=== PATIENT | female | born 1940 | race Caucasian/White ===

== ENCOUNTER 2020-06-13 16:13 | Emergency (ER) | payer MEDICARE ==
[~2020-06-13] VITALS: Ht 157.5 cm; Wt 90.9 kg
--- NOTE | 2020-06-13 16:32 | PHYS DOC ---
Past History Past Medical History: Arthritis, Fibromyalgia, Hypertension Past Surgical History: Appendectomy, Cholecystectomy, Hysterectomy, Other Smoking: Non-smoker Alcohol Use: None Drug Use: None Adult General Chief Complaint Chief Complaint: COUGH HPI HPI Patient is a 72-year-old female presents emergency department complaining of feeling "sick "since Tuesday June 09, 2020. Patient states that yesterday evening she started having diarrhea spells and has had greater than 10 bouts of diarrhea since beginning these. Patient reports generalized diffuse abdominal pain not specific to any certain area. Patient complains of nausea, however reports vomiting only one time this morning at approximately 6 AM. Patient states that there was just food particles and water in her vomitus. Patient reports that her diarrhea is loose watery and brown without blood. Patient denies chest pains, denies chest palpitations, states that she has intermittent shortness of breath when she gets her waves of nausea otherwise does not have any shortness of breath. Patient denies any fever or chills at home. Patient denies any back pain, visual changes, loss of smell or loss of taste. Patient denies sore throat, denies increased thirst or increased urination. Patient denies any other physical complaints or illnesses. Patient reports having a history of hypertension, neuropathy, depression. Patient reports having her gallbladder removed and her appendix removed in 1969. Review of Systems Review of Systems 14 body systems of review of systems have been reviewed. See HPI for pertinent positives and negative responses, otherwise all other systems are negative, nonpertinent or noncontributory. Allergies Allergies Allergies Coded Allergies Type Severity Reaction Last Updated Verified Oxycodone Terephthalate Allergy Unknown 06/13/20 Yes acetaminophen Allergy Unknown 06/13/20 Yes aspirin Allergy Unknown 06/13/20 Yes celecoxib Allergy Unknown 06/13/20 Yes codeine Allergy Unknown 06/13/20 Yes diphenhydramine HCl Allergy Unknown 06/13/20 Yes oxycodone HCl Allergy Unknown 06/13/20 Yes Physical Exam Physical Exam Constitutional: Well developed, well nourished, no acute distress, non-toxic appearance. Patient was initially tachypneic during beginning part of physical exam however patient stopped breathing quickly when asked to. HENT: Normocephalic, atraumatic, bilateral external ears normal, oropharynx moist, no oral exudates, nose normal. Eyes: PERRLA, EOMI, conjunctiva normal, no discharge. Neck: Normal range of motion, no tenderness, supple, no stridor. Cardiovascular:Heart rate regular rhythm, no murmur Lungs & Thorax: Bilateral breath sounds clear to auscultation all lung santiago. Patient is in no respiratory distress. Abdomen: Bowel sounds normal, soft, no masses, no pulsatile masses. Generalized diffuse tenderness to palpation throughout all 4 quadrants, patient has old well -healed abdominal scar for which patient states that she had her appendix and gallbladder removed in 1969. Skin: Warm, dry, no erythema, no rash. Skin moderately moist during initial exam, patient states that she was sweating during her vomiting spell and diarrhea spells however states that she does not sweat when she is not vomiting or having diarrhea. Patient does deny any acute diaphoretic episodes associated with chest pain or shortness of breath. Back: No tenderness, no CVA tenderness. Extremities: No tenderness, no cyanosis, no clubbing, ROM intact, no edema. Neurologic: Alert and oriented X 3, normal motor function, normal sensory function, no focal deficits noted. Psychologic: Affect normal, judgement normal, mood normal. Patient was initially anxious during the initial physical exam, however patient calmed down to a normal affect and normal mood when I indicated she would have another Covid test and we will give her something for nausea. Patient does deny homicidal or suicidal ideations. EKG EKG EKG performed at 1701 per house respiratory therapy staff, shows sinus tachycardia without other ectopy and heart rate of 110 bpm, BP are interval 0.192, QTc interval 0.447, no acute STEMI, no ACS, no acute ischemia noted, EKG interpreted by ED attending physician Dr. Chatman. Radiology/Procedures Radiology/Procedures PATIENT: OPAL CALL ACCOUNT: [id number] : 1940 LOCATION: ER AGE: 80 SEX: F EXAM STATUS: REG ER ORD. PHYSICIAN: ROXANN HANNA APRN REASON: ABDOMINAL PAIN, DIARRHEA, LEUKOCYTOSIS PROCEDURE: CT ABD PELV W/ IV CONTRST ONLY Exam performed: One view chest. Indication: Reason: ABDOMINAL PAIN, DIARRHEA, LEUKOCYTOSIS / Spl. Instructions: OMNI 300 75ML IV ONLY / History: Date of Service: 06/13/2020 5:41 PM Comparison: Two-view chest from 03/20/2013. Single AP upright portable view chest findings: Cardiomediastinal silhouette is within limits of normal. No acute infiltrates, effusion or pneumothorax is detected. The bony structures are normal. Impression: No acute cardiopulmonary process is detected. End impression PQRS Compliance Statement: One or more of the following individualized dose reduction techniques were utilized for this examination: 1. Automated exposure control 2. Adjustment of the mA and/or kV according to patient size 3. Use of iterative reconstruction technique Exam performed: CT abdomen and pelvis with contrast HISTORY: Abdominal pain, diarrhea, leukocytosis. DATE OF SERVICE: 06/13/2020. COMPARISON: None available TECHNIQUE: Contiguous helical acquisitions are obtained through the abdomen and pelvis during intravenous administration of 75 cc of Omnipaque 300. Sagittal and coronal reformatted images are obtained and reviewed. FINDINGS: Lung bases are clear. The visualized heart is normal. Mild hepatic steatosis. Recanalized umbilical vein patient is at opacity seen in portal hypertension. Cholecystectomy. Mild splenomegaly. Pancreas is normal. Both adrenal glands and bilateral kidneys are normal in size with symmetric excretion of contrast via both kidneys. There is no hydronephrosis or nephrolithiasis. Aorta is normal in caliber without aneurysm. There is mild dilation of several small bowel loops in the central abdomen with thickened enhancing mucosa. Multiple mildly enlarged mesenteric lymph nodes are seen scattered throughout. Diffuse sigmoid diverticulosis. The urinary bladder is decompressed. Hysterectomy. No adnexal masses seen. There is mild free fluid in the pelvis. IMPRESSION: Diffuse wall thickening and mucosal hyperenhancement of several loops of small bowel in the central abdomen perhaps representing enteritis. Multiple mildly enlarged mesenteric lymph nodes likely reactive. Sigmoid diverticulosis without acute diverticulitis. Electronically signed by: Ольга Tyler MD (06/13/2020 6:15 PM) [facility] Heart Score Risk Factors: Risk Factors: DM, Current or recent (<one month) smoker, HTN, HLP, family his tory of CAD, obesity. Risk Scores: Risk Factors: DM, Current or recent (<one month) smoker, HTN, HLP, family history of CAD, obesity. Course & Med Decision Making Course & Med Decision Making Pertinent Labs and Imaging studies reviewed. (See chart for details) 80-year-old female presents emergency department complaining that she feels "sick and ill "patient reports having the Covid virus 3 months ago. Patient states that she feels like she has contacted the Covid virus again because she is having similar symptoms. Patient complained of diarrhea with intermittent nausea and vomiting however patient has not exhibited any diarrhea nor any vomiting during her ER stay. And ER work-up was initiated, pending lab results and imaging results. Patient's labs concerning for infectious process, white count 29,600, mild neutrophilia of 80, a CT abdomen pelvis was ordered to rule out abdominal infectious process. Patient's lactic acid result 2.8, initiated 30 mL/kg fluid resuscitation. Patient showed a slight hyperbilirubinemia of 1.3, however patient's amylase was 28 and liver enzymes were also within normal limits. Patient most likely in a dehydrated state as hemoglobin 17.7 hematocrit 52.5. Patient's initial CO2 was decreased at 17. Labs were drawn upon patient's triage process as patient was hyperventilating during the time. Patient has since ventilated within normal limits at a rate of 14-16. An ABG was drawn after a period of time of patient breathing normal rate, patient's CO2 within normal limits at 22. Lactic decreased to 1.78. Discussed case with inpatient admitting Dr. Bryan who recommended patient be trialed home with Lomotil and Levaquin 500 mg daily for 5 days with a diagnosis of self-limiting viral gastroenteritis and diarrhea. Discussed recommendations of Dr. Bryan to patient who was amenable to going home, patient was given first dose of Lomotil in the emergency department, fluid resuscitation was completed prior to discharge, patient reexamination noted patient stated she felt better, patient's appearance was nontoxic. Patient gave verbal understanding of discharge home instructions, antibiotic and prescription use, return to ER concerns, will call her primary care Dr. Kamlesh Velasquez tomorrow, patient states that she has an appointment via telemedicine/computer with Dr. Simon tomorrow at noon. Patient had no further questions or concerns, patient discharged home without incident. Dragon Disclaimer Dragon Disclaimer This electronic medical record was generated, in whole or in part, using a voice recognition dictation system. Departure Departure: Impression: Primary Impression: Viral gastroenteritis Additional Impression: Diarrhea Disposition: 01 DC HOME SELF CARE/HOMELESS Condition: IMPROVED Referrals: KAMLESH العلي MD (PCP) Patient Instructions: Diarrhea, Viral Gastroenteritis Additional Instructions: Please take prescriptions as directed, follow-up with Dr. Freitas tomorrow please call for an appointment tomorrow. Return to the emergency department for worsening symptoms or other concerns. Please keep well-hydrated drinking plenty of water while you are having diarrhea spells. Use the Lomotil prescription to help suppress your diarrhea. EMERGENCY DEPARTMENT GENERAL DISCHARGE INSTRUCTIONS Thank you for coming to [facility] (ED) today and trusting us with you care. We trust that you had a positivie experience in our Emergency Department. If you wish to speak to the department management, you may call the director at [phone]. YOUR FOLLOW UP INSTRUCTIONS ARE FOLLOWS: 1. Do you have a private Doctor? If you do not have a private doctor, please ask for a resource list of physicians or clinics that may be able to assist you with follow up care. 2. The Emergency Physician has interpreted your x-rays. The X-Ray specialist will also review them. If there is a change in the findings, you will be notified in 48 hours when at all possible. 3. A lab test or culture has been done, your results will be reviewed and you will be notified if you need a change in treatment. ADDITIONAL INSTRUCTIONS AND INFORMATION: 1. Your care today has been supervised by a physician who is specially trained in emergency care. Many problems require more than one evaluation for a complete diagnosis and treatment. We recommend that you schedule your follow up appointment as recommended to ensure complete treatment of you illness or injury. If you are unable to obtain follow up care and continue to have a problem, or if your condition worsens, we recommend that you return to the ED. 2. We are not able to safely determine your condition over the phone nor are we able to give sound medical advice over the phone. For these safety reasons, if you call for medical advice we will ask you to come to the ED for further evaluation. 3. If you have any questions regarding these discharge instructions please call the ED at [phone]. SAFETY INFORMATION: In the interest of safety, wellness, and injury prevention; we encourage you to wear your sealbelt, if you smoke; quite smoking, and we encourage family to use a protective helmet for bicycling and other sporting events that present an increased risk for head injury. IF YOUR SYMPTOMS WORSEN OR NEW SYMPTOMS DEVELOP, OR YOU HAVE CONCERNS ABOUT YOUR CONDITION; OR IF YOUR CONDITION WORSENS WHILE YOU ARE WAITING FOR YOUR FOLLOW UP APPOINTMENT; EITHER CONTACT YOUR PRIMARY CARE DOCTOR, THE PHYSICIAN WHOSE NAME AND NUMBER YOU WERE GIVEN, OR RETURN TO THE ED IMMEDIATELY. Scripts Levofloxacin (LEVOFLOXACIN) 500 Mg Tablet 500 MG PO ONCE for DIARRHEA for 5 Days, #5 TAB 0 Refills Prov: ROXANN HANNA APRN 06/13/20 Diphenoxylate Hcl/Atropine (LOMOTIL TABLET) 1 Each Tablet 1 EACH PO PRN PRN for DIARRHEA MDD 8 TABLETS IN 24 HOUR PERIOD, #16 TAB 0 Refills Start with 2 tabs p.o. 4 times a day as needed for diarrhea, take 2 tabs after each diarrhea spell up to a maximum of 8 tablets. Do not take any tablets if you are not having diarrhea. Prov: ROXANN HANNA APRN 06/13/20 Problem Qualifiers Additional Impression: Diarrhea Diarrhea type: infectious Qualified Codes: A09 - Infectious g astroenteritis and colitis, unspecified ROXANN HANNA APRN Jun 13, 2020 16:32
[2020-06-13] MEDS ORDERED: ONDANSETRON PF 4 MG/2 ML VIAL. IVP ONE (16:45)
[2020-06-13] MEDS ORDERED: IV NORMAL SALINE 1,000ML 1,000 ML IV ONE ×2 (16:45→20:15)
[2020-06-13 16:58] LABS: BASO # 0.1 x10^3/uL (0.0-0.2); BASO % 0 % (0-3); EOS # 2.8 x10^3/uL (0.0-0.7); EOS % 10 % (0-3); HEMATOCRIT 52.5 % (36.0-47.0); HEMOGLOBIN 17.7 g/dL (12.0-15.5); LYMPH # 1.8 x10^3/uL (1.0-4.8); LYMPH % 6 % (24-48); MEAN CORPUSCULAR HEMOGLOBIN 30 pg (25-35); MEAN CORPUSCULAR HGB CONC 34 g/dL (31-37); MEAN CORPUSCULAR VOLUME 88 fL (79-100); MONO # 1.3 x10^3/uL (0.0-1.1); MONO % 5 % (0-9); NEUT # 23.6 x10^3uL (1.8-7.7); NEUT % 80 % (31-73); PLATELET COUNT 310 x10^3/uL (140-400); RED BLOOD COUNT 5.96 x10^6/uL (3.50-5.40); RED CELL DISTRIBUTION WIDTH 13.6 % (11.5-14.5); WHITE BLOOD COUNT 29.6 x10^3/uL (4.0-11.0)
[2020-06-13 17:14] LABS: ANION GAP 17 (6-14); BLOOD UREA NITROGEN 16 mg/dL (7-20); BUN/CREATININE RATIO 23 (6-20); CALCIUM 8.4 mg/dL (8.5-10.1); CARBON DIOXIDE 17 mmol/L (21-32); CHLORIDE 109 mmol/L (98-107); CREATININE 0.7 mg/dL (0.6-1.0); GFR 80.9; GLUCOSE 120 mg/dL (70-99); POTASSIUM 4.3 mmol/L (3.5-5.1); SODIUM 143 mmol/L (136-145)
[2020-06-13 17:31] LABS: ALBUMIN 2.9 g/dL (3.4-5.0); ALBUMIN/GLOBULIN RATIO 1.1 (1.0-1.7); ALK PHOS 90 U/L (46-116); ALT (SGPT) 18 U/L (14-59); AMYLASE 28 U/L (25-115); AST (SGOT) 19 U/L (15-37); TOTAL BILIRUBIN 1.3 mg/dL (0.2-1.0); TOTAL PROTEIN 5.5 g/dL (6.4-8.2)
[2020-06-13] MEDS ORDERED: CONTRAST GIVEN. MC PRN (17:45)
[2020-06-13] MEDS ORDERED: IOHEXOL 300 MG/ML 75 ML VIAL. IV ONE (18:00)
[2020-06-13] MEDS ORDERED: CIPROFLOXACIN 400MG PREMIX 200 ML IV ONE (18:00)
[2020-06-13 18:15] LABS: INFLUENZA A PATIENT NEGATIVE (NEGATIVE); INFLUENZA B PATIENT NEGATIVE (NEGATIVE)
--- NOTE | 2020-06-13 18:17 | RAD ---
Exam performed: One view chest. Indication: Reason: ABDOMINAL PAIN, DIARRHEA, LEUKOCYTOSIS / Spl. Instructions: OMNI 300 75ML IV ONLY / History: Date of Service: 06/13/2020 5:41 PM Comparison: Two-view chest from 03/20/2013. Single AP upright portable view chest findings: Cardiomediastinal silhouette is within limits of normal. No acute infiltrates, effusion or pneumotho rax is detected. The bony structures are normal. Impression: No acute cardiopulmonary process is detected. End impression PQRS Compliance Statement: One or more of the following individualized dose reduction techniques were utilized for this examinat ion: 1. Automated exposure control 2. Adjustment of the mA and/or kV according to patient size 3. Use of iterative reconstruction technique Exam performed: CT abdomen and pelvis with contrast HISTORY: Abdominal pain, diarrhea, leukocytosis. DATE OF SERVICE: 06/13/2020. COMPARISON: None available TECHNIQUE: Contiguous helical acquisitions are obtained through the abdomen and pelvis during intrave nous administration of 75 cc of Omnipaque 300. Sagittal and coronal reformatted images are obtained a nd reviewed. FINDINGS: Lung bases are clear. The visualized heart is normal. Mild hepatic steatosis. Recanalized umbilical vein patient is at opacity seen in portal hypertension. Cholecystectomy. Mild splenomegaly. Pancreas is normal. Both adrenal glands and bilateral kidneys ar e normal in size with symmetric excretion of contrast via both kidneys. There is no hydronephrosis or nephrolithiasis. Aorta is normal in caliber without aneurysm. There is mild dilation of several smal l bowel loops in the central abdomen with thickened enhancing mucosa. Multiple mildly enlarged mesent jay lymph nodes are seen scattered throughout. Diffuse sigmoid diverticulosis. The urinary bladder is decompressed. Hysterectomy. No adnexal masses seen. There is mild free fluid i n the pelvis. IMPRESSION: Diffuse wall thickening and mucosal hyperenhancement of several loops of small bowel in the central a bdomen perhaps representing enteritis. Multiple mildly enlarged mesenteric lymph nodes likely reactiv e. Sigmoid diverticulosis without acute diverticulitis. Electronically signed by: Ольга Tyler MD (06/13/2020 6:15 PM) [facility]
[2020-06-13] MEDS ORDERED: IV NORMAL SALINE 1,000ML 2,000 ML IV STA (19:03)
[2020-06-13 20:10] LABS: BGAS PH 7.38 (7.35-7.45)
[2020-06-13] MEDS ORDERED: DIPHENOXYLATE/ATROPINE TABLET. PO ONE (21:00)
[2020-06-13 21:08] LABS: BILIRUBIN,URINE NEG (NEG); CLARITY,URINE CLEAR; COLOR,URINE YELLOW; GLUCOSE,URINE NEG (NEG)
[2020-06-13 21:09] LABS: BACTERIA,URINE 0 /HPF (0-FEW); NITRITE,URINE NEG (NEG); RBC,URINE 0 /HPF (0-2); UROBILINOGEN,URINE 0.2 mg/dL (0.2 mg/dL); WBC,URINE 0 /HPF (0-4)
[2020-06-13] MEDS ORDERED: LEVO500T8 PO (21:27)
[2020-06-13] MEDS ORDERED: DIPH1TAB PO (21:27)
[2020-06-13 21:39] VITALS: BP 114/66
[2020-06-13 21:51] LABS: % EOS 16 % (0-5); % LYMPHS 4 % (24-48); % MONOS 6 % (0-10); % SEGS 74 % (35-66); PLT ESTIMATE ADEQUATE (ADEQUATE)
--- NOTE | 2020-06-14 07:44 | EKG ---
[address] [address] Test Date: 2020-06-13 Test Time: 17:01:16 Pat Name: OPAL CALL Department: Room: Gender: F Gyroscope Repairer: DANYELLE : 1940 Requested By: ROXANN HANNA Order Number: [id number] Reading MD: Measurements Intervals [place] Rate: 110 P: 1 MI: 192 QRS: 16 QRSD: 78 T: 62 QT: 326 QTc: 447 Interpretive Statements SINUS TACHYCARDIA OTHERWISE NORMAL ECG RI6.02 No previous ECG available for comparison
[2020-06-17] MEDS ORDERED: LISI-334 PO (22:47)
[2020-06-18] MEDS ORDERED: MAGNESIUM SULFATE 2GM 50 ML IV ONE (16:00)
[2020-06-18] MEDS ORDERED: POTASSIUM CL 20MEQ IN D5W 1,000 ML IV SCH (16:00)
[2020-06-18] MEDS ORDERED: ACETAMINOPHEN 325 MG TABLET PO PRN (16:15)
[2020-06-18] MEDS ORDERED: DIPHENOXYLATE/ATROPINE TABLET. PO PRN (16:15)
[2020-06-18] MEDS ORDERED: NON FORMULARY ITEM (Melatonin 10 MG) PO PRN (16:15)
[2020-06-18] MEDS ORDERED: DICLOFENAC SODIUM 1% TOPICAL GEL 100GM TUBE. TP SCH (21:00)
[2020-06-18] MEDS ORDERED: GABAPENTIN 300 MG CAPSULE. PO SCH (21:00)
[2020-06-18] MEDS ORDERED: DULoxetine HCL 20 MG CAPSULE.DR PO SCH (21:00)
[2020-06-19] MEDS ORDERED: VITAMIN E MIXED 400 UNIT PO SCH (09:00)
[2020-06-19] MEDS ORDERED: NON FORMULARY ITEM (Esomeprazole Magnesium (Nexium Capsule) 40 MG) PO SCH (09:00)
[2020-06-19] MEDS ORDERED: ASCORBIC ACID 1000 MG PO SCH (09:00)
[2020-06-19] MEDS ORDERED: DHA PO SCH (09:00)
[2020-06-19] MEDS ORDERED: VITAMIN D3 PO SCH (09:00)
[2020-06-19] MEDS ORDERED: FISH OIL PO SCH (09:00)
[2020-06-19] MEDS ORDERED: OMEGA PO SCH (09:00)
[2020-06-19] MEDS ORDERED: EPA PO SCH (09:00)
[2020-06-19] MEDS ORDERED: NON FORMULARY ITEM (Biotin 10,000 MCG) PO SCH (09:00)
[2020-06-19] MEDS ORDERED: CALCIUM CARBONATE PO SCH (09:00)
[2020-06-19] MEDS ORDERED: CHOLECALCIFEROL 125 MCG PO SCH (09:00)
== END 2020-06-13 21:38 | disposition home or self-care (01) ==
LOC: ER 16:13
DX: A08.4 Viral intestinal infection, unspecified (principal); R19.7 Diarrhea, unspecified; M19.90 Unspecified osteoarthritis, unspecified site; M79.7 Fibromyalgia; I10 Essential (primary) hypertension; Z20.828 Contact with and (suspected) exposure to other viral communicable diseases; Z90.49 Acquired absence of other specified parts of digestive tract; Z90.89 Acquired absence of other organs; Z90.710 Acquired absence of both cervix and uterus; Z88.5 Allergy status to narcotic agent; Z88.6 Allergy status to analgesic agent; Z88.8 Allergy status to other drugs, medicaments and biological substances
CPT/HCPCS: 36415; 36600; 71045; 74177; 80053; 81001; 82150; 82553; 82803; 83605; 83880; 84484; 85007; 85025; 87804; 93005; 96361; 96365; 96368; 96375; 99285; C9803; J0744; J2405; J3490; J7030; Q9967; U0003

== ENCOUNTER 2020-06-17 14:51 | Inpatient (IN) | payer MEDICARE ==
[~2020-06-17] VITALS: Ht 157.5 cm; Wt 95.9 kg
[~2020-06-17 14:51] MED LIST: DIPH1TAB PO; LEVO500T8 PO
[2020-06-17] MEDS ORDERED: IV NORMAL SALINE 1,000ML 1,000 ML IV SCH (16:00)
[2020-06-17] MEDS ORDERED: DICYCLOMINE 20 MG/2 ML VIAL. IM ONE (16:15)
--- NOTE | 2020-06-17 16:42 | PHYS DOC ---
Past History Past Medical History: Arthritis, Fibromyalgia, GERD, Hypertension (SIL BOWEN APRN) Past Surgical History: Appendectomy, Cholecystectomy, Hysterectomy, Other (SIL BOWEN APRN) Smoking: Non-smoker Alcohol Use: None Drug Use: None (SIL BOWEN APRN) General Adult EDM: Chief Complaint: NAUSEA/VOMITING/DIARRHEA HPI: HPI: Patient is a 80-year-old female who presents with left lower abdominal pain, diarrhea. Patient was seen here on 06/09 for for similar symptoms. Patient was sent home with levofloxacin, and Lamictal. Patient returned to the ER today stating that she has continued to have watery diarrhea and weakness. Patient states that she is unable to eat or drink anything because it runs right through her. Patient denies recent illness, recent antibiotics. Patient denies fever. (SIL BOWEN APRN) Review of Systems: Review of Systems: Constitutional: Denies fever or chills Eyes: Denies change in visual acuity HENT: Denies nasal congestion or sore throat Respiratory: Denies cough or shortness of breath Cardiovascular: Denies chest pain or edema GI: Left lower abdominal pain, reports diarrhea . Denies nausea, vomiting, bloody stools : Denies dysuria Musculoskeletal: Denies back pain or joint pain Integument: Denies rash Neurologic: Denies headache, focal weakness or sensory changes Endocrine: Denies polyuria or polydipsia Lymphatic: Denies swollen glands Psychiatric: Denies depression or anxiety (SIL BOWEN APRN) Current Medications: Current Meds: Current Medications Medications (Trade) Dose Ordered Sig/Yumiko Start Time Stop Time Status Last Admin Dose Admin Dicyclomine HCl (Bentyl) 20 mg 1X ONCE 06/17/20 16:15 06/17/20 16:19 DC Sodium Chloride 1,000 ml @ 1,000 mls/hr Q1H 06/17/20 16:00 06/17/20 16:59 (SIL BOWEN APRN) Allergies: Allergies: Allergies Coded Allergies Type Severity Reaction Last Updated Verified Oxycodone Terephthalate Allergy Unknown 06/13/20 Yes acetaminophen Allergy Unknown 06/13/20 Yes aspirin Allergy Unknown 06/13/20 Yes celecoxib Allergy Unknown 06/13/20 Yes codeine Allergy Unknown 06/13/20 Yes diphenhydramine HCl Allergy Unknown 06/13/20 Yes oxycodone HCl Allergy Unknown 06/13/20 Yes (SIL BOWEN APRN) Physical Exam: PE: Constitutional: Well developed, well nourished, no acute distress, non-toxic appearance. [] HENT: Normocephalic, atraumatic, bilateral external ears normal, oropharynx moist, no oral exudates, nose normal. [] Eyes: PERRLA, EOMI, conjunctiva normal, no discharge. [] Neck: Normal range of motion, no tenderness, supple, no stridor. [] Cardiovascular:Heart rate regular rhythm, no murmur [] Lungs & Thorax: Bilateral breath sounds clear to auscultation [] Abdomen: Bowel sounds normal, soft, no tenderness, no masses, no pulsatile masses. [] Skin: Warm, dry, no erythema, no rash. [] Back: No tenderness, no CVA tenderness. [] Extremities: No tenderness, no cyanosis, no clubbing, ROM intact, no edema. [] Neurologic: Alert and oriented X 3, normal motor function, normal sensory function, no focal deficits noted. [] Psychologic: Affect normal, judgement normal, mood normal. [] (SIL BOWEN APRN) Current Patient Data: Vital Signs: Vital Signs Date Time Temp Pulse Resp B/P (MAP) Pulse Ox O2 Delivery O2 Flow Rate FiO2 06/17/20 15:19 98.1 84 18 167/91 (116) 97 Room Air (SIL BOWEN APRN) EKG: EKG: Normal Sinus Rhythm, HR 78 BPM, Otherwise normal EKG[] (SIL BOWEN APRN) Radiology/Procedures: Radiology/Procedures: [] (SIL BOWEN APRN) Heart Score: Risk Factors: Risk Factors: DM, Current or recent (<one month) smoker, HTN, HLP, family history of CAD, obesity. Risk Scores: Score 0 - 3: 2.5% MACE over next 6 weeks - Discharge Home Score 4 - 6: 20.3% MACE over next 6 weeks - Admit for Clinical Observation Score 7 - 10: 72.7% MACE over next 6 weeks - Early Invasive Strategies (SIL BOWEN APRN) Course & Med Decision Making: Course & Med Decision Making Pertinent Labs and Imaging studies reviewed. (See chart for details) [] Patient is a 80-year-old female who presents with left lower abdominal pain, diarrhea. Patient was seen here on 06/09 for same symptoms. Patient states that she has continued to have diarrhea and unable to keep anything down. Labs ordered to reevaluate WBC, stool sample for bacteria and Cdiff. Will reassess patient. Patient complaining of weakness. States "I felt like I was going to pass out when I went to the bathroom". Patient reports she would like to stay in the hospital. Will consult Dr. Oreilly to admit patient to hospital. Dr. Oreilly excepting patient for admission. Patient admitted for weakness, diarrhea, hypokalemia. (SIL BOWEN APRN) Course & Med Decision Making I oversaw on the above date of service of this patient and discussed the care with the NAPPER FIXER. I saw patient and repeated certain aspects of history and physical exam. I agree with the findings, plan of care, and disposition as documented. (ASHLEY CRUZ DO) Dragon Disclaimer: Dragon Disclaimer: This electronic medical record was generated, in whole or in part, using a voice recognition dictation system. (SIL BOWEN APRN) Departure Departure: Impression: Primary Impression: Diarrhea with dehydration Disposition: ADMITTED INPT THIS HOSP Admitting Physician: Keysha Oreilly (ASHLEY CRUZ DO) Condition: STABLE Referrals: KAMLESH العلي MD (PCP) SIL BOWEN APRN Jun 17, 2020 16:42 ASHLEY CRUZ DO Jun 22, 2020 13:11
[2020-06-17 17:09] LABS: BASO # 0.1 x10^3/uL (0.0-0.2); BASO % 1 % (0-3); EOS # 6.1 x10^3/uL (0.0-0.7); EOS % 34 % (0-3); HEMATOCRIT 47.7 % (36.0-47.0); HEMOGLOBIN 16.2 g/dL (12.0-15.5); LYMPH # 2.7 x10^3/uL (1.0-4.8); LYMPH % 15 % (24-48); MEAN CORPUSCULAR HEMOGLOBIN 30 pg (25-35); MEAN CORPUSCULAR HGB CONC 34 g/dL (31-37); MEAN CORPUSCULAR VOLUME 88 fL (79-100); MONO # 1.1 x10^3/uL (0.0-1.1); MONO % 6 % (0-9); NEUT % 44 % (31-73); PLATELET COUNT 216 x10^3/uL (140-400); RED BLOOD COUNT 5.43 x10^6/uL (3.50-5.40); RED CELL DISTRIBUTION WIDTH 13.2 % (11.5-14.5); WHITE BLOOD COUNT 18.1 x10^3/uL (4.0-11.0)
[2020-06-17 17:34] LABS: CALCIUM 9.2 mg/dL (8.5-10.1); CREATININE 0.9 mg/dL (0.6-1.0); GFR 60.6; POTASSIUM 3.3 mmol/L (3.5-5.1)
[2020-06-17 17:39] LABS: ALBUMIN 3.5 g/dL (3.4-5.0); ALBUMIN/GLOBULIN RATIO 0.9 (1.0-1.7); TOTAL BILIRUBIN 1.1 mg/dL (0.2-1.0); TOTAL PROTEIN 7.3 g/dL (6.4-8.2)
[2020-06-17] MEDS ORDERED: POTASSIUM CHLORIDE 20 MEQ TABLET.ER. PO ONE (18:00)
[2020-06-17 18:32] LABS: BILIRUBIN,URINE SMALL (NEG); CLARITY,URINE CLOUDY; COLOR,URINE YELLOW; GLUCOSE,URINE NEG (NEG)
[2020-06-17 18:33] LABS: NITRITE,URINE NEG (NEG); UROBILINOGEN,URINE 0.2 mg/dL (0.2 mg/dL)
[2020-06-17 18:35] LABS: AMORPHOUS SEDIMENT,UR PRESENT /HPF; RBC,URINE OCC /HPF (0-2); SQUAMOUS EPITHELIAL CELL,UR OCC /LPF; WBC,URINE OCC /HPF (0-4)
[2020-06-17] MEDS ORDERED: POTASSIUM CL 40MEQ D5-0.45NACL 1,000 ML IV ONE (19:30)
[2020-06-17] MEDS ORDERED: PIPERACILLIN/TAZOBACTAM 3.375 GM VIAL IV ONE (19:31)
[2020-06-17] MEDS ORDERED: IV NORMAL SALINE 100ML 100 ML ONE (19:32)
[2020-06-17 19:43] LABS: BACTERIA,URINE 0 /HPF (0-FEW)
[2020-06-17 20:14] LABS: % ATYL 2 % (0-0); % BANDS 4 % (0-9); % EOS 38 % (0-5); % LYMPHS 19 % (24-48); % MONOS 4 % (0-10); % SEGS 33 % (35-66); PLT ESTIMATE ADEQUATE (ADEQUATE)
[2020-06-17 20:25] VITALS: BP 104/74
--- NOTE | 2020-06-17 20:25 | NUR ---
Pt admitted to ICU bed 4 from ER, via [facility] accompanied by EMS and nursing staff. Pt self transferred from [facility] to bed with standby assist and cane. Admission assessment completed. Pt here for c/o frequent diarrhea stools, N/V and weakness. Pt was seen in our ER on 06/13 for same complaints, stating that she is "no better." Pt was + Covid in 02/2020 but was negative on 06/13/2020, also - for Flu A/B. Health history and home medications reviewed with pt. Pt lives home alone but has been staying with her daughter since Sunday. SCD for VTE. Pt requesting Flu vaccine, order placed in computer. Pt was given written information regarding hospital policies, unit procedures and contact persons. Valuables were checked and left at bedside. Daughter to bring up a few more belongings in AM to include a set of dentures. Pt was assisted up to BSC, had brown liquid stool. CDiff pending.
[2020-06-17] MEDS ORDERED: BIOT5000 PO (22:47)
[2020-06-17] MEDS ORDERED: CALC-497 PO (22:47)
[2020-06-17] MEDS ORDERED: DULO20CA50 PO (22:47)
[2020-06-17] MEDS ORDERED: OMEG100021 PO (22:47)
[2020-06-17] MEDS ORDERED: VITA400T6 PO (22:47)
[2020-06-17] MEDS ORDERED: ASCO500C PO (22:47)
[2020-06-17] MEDS ORDERED: CHOL500045 PO (22:47)
[2020-06-17] MEDS ORDERED: MELA10TA PO (22:47)
[2020-06-17] MEDS ORDERED: DICL100G28 TP (22:47)
[2020-06-17] MEDS ORDERED: LISI20TA18 PO (22:47)
[2020-06-17] MEDS ORDERED: NAPR220T70 PO (22:47)
[2020-06-17] MEDS ORDERED: ESOM40CA PO (22:47)
[2020-06-17] MEDS ORDERED: ACET325T9 PO (22:47)
[2020-06-17] MEDS ORDERED: GABA-586 PO (22:47)
[2020-06-17 23:35] VITALS: BP 108/61
[2020-06-17] MEDS: PIPERACILLIN/TAZOBACTAM 3.375 GM in IV NORMAL SALINE 50ML 50 ML IV SCH (23:37)
[2020-06-18] MEDS: PIPERACILLIN/TAZOBACTAM 3.375 GM in IV NORMAL SALINE 50ML 50 ML IV SCH ×4 (05:44→23:30)
[2020-06-18 05:55] VITALS: BP 106/57
[2020-06-18 06:40] LABS: BASO # 0.1 x10^3/uL (0.0-0.2); BASO % 1 % (0-3); EOS # 5.3 x10^3/uL (0.0-0.7); EOS % 32 % (0-3); HEMOGLOBIN 14.1 g/dL (12.0-15.5); LYMPH # 2.8 x10^3/uL (1.0-4.8); LYMPH % 17 % (24-48); MEAN CORPUSCULAR HEMOGLOBIN 29 pg (25-35); MEAN CORPUSCULAR HGB CONC 34 g/dL (31-37); MEAN CORPUSCULAR VOLUME 87 fL (79-100); MONO # 1.1 x10^3/uL (0.0-1.1); MONO % 6 % (0-9); NEUT # 7.3 x10^3uL (1.8-7.7); NEUT % 44 % (31-73); PLATELET COUNT 183 x10^3/uL (140-400); RED BLOOD COUNT 4.81 x10^6/uL (3.50-5.40); RED CELL DISTRIBUTION WIDTH 13.1 % (11.5-14.5); WHITE BLOOD COUNT 16.6 x10^3/uL (4.0-11.0)
[2020-06-18 06:55] LABS: ALBUMIN/GLOBULIN RATIO 0.9 (1.0-1.7); CALCIUM 8.4 mg/dL (8.5-10.1); CREATININE 0.9 mg/dL (0.6-1.0); GFR 60.6; MAGNESIUM 1.6 mg/dL (1.8-2.4); POTASSIUM 3.6 mmol/L (3.5-5.1); TOTAL BILIRUBIN 1.2 mg/dL (0.2-1.0); TOTAL PROTEIN 6.2 g/dL (6.4-8.2)
[2020-06-18] MEDS ORDERED: FLU VACC QS 2020-21(6MOS+)/PF 0.5 ML SYRINGE. VAX IM ONE (09:00)
[2020-06-18] MEDS: LACTOBACILLUS RHAMNOSUS GG 1 CAPSULE. PO SCH ×2 (09:00→20:47)
[2020-06-18 11:38] VITALS: BP 120/73
[2020-06-18 15:06] VITALS: BP 118/82
[2020-06-18] MEDS ORDERED: ACETAMINOPHEN 325 MG TABLET PO PRN (16:30)
[2020-06-18] MEDS ORDERED: MAGNESIUM SULFATE 2GM 50 ML IV ONE (16:30)
--- NOTE | 2020-06-18 16:47 | EKG ---
[address] [address] Test Date: 2020-06-17 Test Time: 16:07:18 Pat Name: OPAL CALL Department: Room: [facility] 1 Gender: F Log Hooker: DEDRICK : 1940 Requested By: SIL BOWEN Order Number: [id number] Reading MD: James Littlejohn Measurements Intervals [place] Rate: 78 P: -90 LA: 172 QRS: 7 QRSD: 76 T: 35 QT: 374 QTc: 430 Interpretive Statements ECTOPIC ATRIAL RHYTHM Electronically Signed On 06-22-2020 14:37:58 SUGAR TRUCKER by James Littlejohn
[2020-06-18] MEDS: CALCIUM CARB/VIT D3 500/200 TABLET PO SCH (17:00)
[2020-06-18] MEDS: POTASSIUM CL 20MEQ IN D5W 1,000 ML IV SCH (17:00)
--- NOTE | 2020-06-18 17:08 | HP ---
ADMIT DATE: HISTORY OF PRESENT ILLNESS: The patient is a 80-year-old female patient who presented to the Emergency Room with the complaint of left lower abdominal pain and diarrhea. According to the patient, she was seen on 06/09/2020 for similar symptoms. The patient was sent home with levofloxacin and Lamictal. The patient returned to the Emergency Room on 06/17/2020, as she has continued to have watery diarrhea and weakness. She stated that she is unable to eat or drink anything because it runs through her. She denies any recent illness, denies any antibiotic. Denies any fever. She was diagnosed with COVID on 03/12/2020, and at that time, she was very fatigued. She was quarantined and Health Department used to call her every day, and eventually, she was taken off the quarantine. However, on 06/09/2020, she started feeling fatigued and weak. On 06/12/2020, she started to have diarrhea and was seen in the Emergency Room on 06/13/2020. She stated that she has vomited the first 2 days and continued to have abdominal cramping, but there was no blood in the stool. She did also feel dizzy and weak. On 06/13/2020, her white cell count was elevated at 29,600. She was clearly dehydrated with hemoglobin 17.7, hematocrit 52.5. Her chemistry showed that also has lactic acidosis with a serum lactic acid 2.8; however, at that time, she apparently was sent home with levofloxacin as well as Lomotil without much improvement in her symptoms. The patient stated that she was admitted to this hospital about 7-8 years ago with similar symptoms. At that time, she was told she has gastroenteritis. She in fact had a CT scan of the abdomen and pelvis on 06/13/2020, which showed that the patient has diffuse wall thickening and mucosal enhancement of several loops of small bowel in the central abdomen, perhaps representing enteritis, multiple mildly enlarged mesenteric lymph nodes likely reactive sigmoid diverticulosis without acute diverticulitis. The patient was admitted, and stool was sent for C. diff toxins as well as stool for culture and sensitivity, was started on IV fluid as well as Zosyn 3.375 grams IV every 6 hours. PAST MEDICAL HISTORY: Significant for hypertension, seasonal allergies, generalized osteoarthritis, and fibromyalgia. PAST SURGICAL HISTORY: Significant for cholecystectomy and appendectomy. She has also surgery for tubal , total abdominal hysterectomy, bilateral cataract extraction, tonsillectomy, and jaw surgery. ALLERGIES: SHE IS ALLERGIC TO CODEINE, OXYCODONE, PERCODAN, ____ ACETAMINOPHEN, ASPIRIN, CELEBREX, AND DIPHENHYDRAMINE. MEDICATIONS: She is currently on following medications: She was on levofloxacin 500 mg once a day, omega-3 fatty acid 2000 mg once a day, lisinopril 20 mg once a day, diclofenac sodium 100 grams gel applied topically twice a day, naproxen 220 mg 3 times a day, acetaminophen 650 mg 4 times a day, gabapentin 300 mg 3 times a day, duloxetine 20 mg twice a day, calcium carbonate, vitamin D3 two tablets once a day, diphenoxylate/atropine for Lomotil 1 tablet not to exceed 8 tablets in 24 hours. She is on Nexium 40 mg once a day, Biotin 09125 mcg p.o. daily, ascorbic acid 1000 mg daily. She is on cholecalciferol, vitamin D3 125 mcg once a day, vitamin E 400 units once a day, and melatonin ____ mg at bedtime. FAMILY HISTORY: She has 4 sisters and 2 brothers, all younger and most of them have hypertension. Her father at age of 57. He was shocked by ____. Her mother due to Alzheimer disease. SOCIAL HISTORY: She is . Her in an airplane crash accident. She was remarried and was . She has 3 sons and 1 daughter. Her son at the age of 52 because of traumatic head injury. She never smoked, does not drink alcohol. Used to smoke marijuana before. REVIEW OF SYSTEMS: As per history of present illness. PHYSICAL EXAMINATION: GENERAL: On arrival to the Emergency Room, she looked well and was clearly in no apparent respiratory distress. No pallor, jaundice, cyanosis, or thyromegaly. No jugular venous distention. No limb edema. VITAL SIGNS: Her heart rate was 87, blood pressure was 104/74, temperature was 98.7, respiratory rate was 18, and oxygen saturation was 97%. HEAD, EYES, EARS, NOSE, AND THROAT: Showed normocephalic, atraumatic. NECK: Supple. HEART: Showed normal first and second heart sounds. No gallop or murmur. CHEST: Clear to auscultation. No crepitation or rhonchi. ABDOMEN: Distended, soft with tenderness mostly in the left lower quadrant. There is no guarding or rigidity. No organomegaly. All hernial orifices intact. Bowel sounds normal. NEUROLOGIC: She is awake, alert, and responding appropriately. All cranial nerves intact. EXTREMITIES: She moves extremities without difficulty. LABORATORY DATA: Her lab work on arrival showed a white cell count of 18,000, hemoglobin 16.2, hematocrit 47.7, MCV 88, and platelet count 216,000 with a manual differential showed 44% polymorphs, 15% lymphocytes, 6% monocytes, and 34% eosinophils. Her chemistry on admission showed a serum sodium 142, potassium 3.3, chloride 105, bicarbonate 25, anion gap of 12, BUN 8, creatinine 0.9, estimated GFR was 60 mL per minute. Her glucose 106, calcium was 9.2. Total bilirubin, AST, and ALT were normal. Her alkaline phosphatase is actually elevated ____. Total protein 7.3, albumin was 3.5. Her prothrombin time, INR, and aPTT are all normal. Urinalysis was essentially unremarkable. Her coronavirus by PCR was not detected, and her influenza A and B were negative. ASSESSMENT AND PLAN: The patient was given 1000 mL of normal saline and started on D5 with potassium chloride 150 mL per hour. She has received piperacillin and tazobactam and lactobacillus. We will obviously follow all her lab work closely and decide further management once we have the result of the stool for C. diff and/or stool for culture and sensitivity. JACK PRESLEY MD DR: JOVON/barry JOB#: [id number] / [id number]
--- NOTE | 2020-06-18 17:57 | NUR ---
Pt A&Ox4, VSS. Pt has been to [facility] multiple times today for liquid stools and voiding. Pt does complain of some mild cramping in abdomen just before a bowel movement. Also c/o some weakness and episodes of "faintness" when on commode after a bowel movement. Tolerating clear liquids for meals but "seems to run right through me" as pt states. Pt is very pleasant and cooperative with all care given. No vomiting this shift but some indigestion and nausea at times but does have appetite and states she is craving real foods to eat. C diff still pending at this time. Andrew VAZQUEZ
[2020-06-18 19:10] VITALS: BP 105/53
--- NOTE | 2020-06-18 19:22 | PN ---
DATE: 06/18/2020 SUBJECTIVE: The patient was admitted with recurrent bouts of loose bowel movement, has been going on for almost a week now. She did have vomiting in the first 2 days. No further episodes of that. She continued to have nausea and abdominal cramping, generalized weakness and dizziness. She continued to have diarrhea whatever she eats or drinks according to her. PHYSICAL EXAMINATION: GENERAL: When I saw her this afternoon, she was resting flat in bed, in no apparent respiratory distress. There was no pallor, jaundice, cyanosis or thyromegaly. No jugular venous distention. No limb edema. VITAL SIGNS: Her heart rate was 67, blood pressure was 118/82, temperature was 98.7, respiratory rate was 18 and oxygen saturation was 98% on room air. HEAD, EYES, EARS, NOSE AND THROAT: Showed normocephalic, atraumatic. NECK: Supple. HEART: Normal first and second heart sounds. No gallop, rub or murmur. CHEST: Clear to auscultation. No crepitation or rhonchi. ABDOMEN: Distended, soft with tenderness mostly in the left lower quadrant. NEUROLOGIC: She is grossly intact. Her intake over the last 24 hours was 2372, no output was recorded. LABORATORY DATA: Her lab work this morning showed a white cell count is coming down to 16,600, hemoglobin 14, hematocrit 42, MCV 87 and platelet count of 183,000 with a manual differential shows 44% polymorphs, 17% lymphocytes, 9% monocytes, and 32% eosinophils. Her chemistry this morning showed a serum sodium 142, potassium 3.6, chloride 109, bicarbonate 22, anion gap of 11, BUN 8, creatinine 0.9, estimated GFR was 60 mL per minute. Her glucose 116, calcium was 8.4. Serum magnesium was 1.6. Total bilirubin, AST, ALT were normal; however, alkaline phosphatase slightly elevated 198. Total protein was 6.2, albumin 3. ASSESSMENT: Acute gastroenteritis with marked eosinophilia, severe dehydration, hypokalemia and hypomagnesemia. PLAN: My plan is to continue with IV fluid, continue with replenish her magnesium. Continue with IV Zosyn for now. JACK PRESLEY MD DR: JOVON/barry JOB#: [id number] / [id number]
[2020-06-18] MEDS ORDERED: PIPERACILLIN/TAZOBACTAM 3.375 GM in IV NORMAL SALINE 50ML 50 ML IV SCH (19:30)
[2020-06-18] MEDS: DICLOFENAC SODIUM 1% TOPICAL GEL 100GM TUBE. TP SCH (20:48)
[2020-06-18] MEDS: MELATONIN 3 MG TABLET PO PRN (20:48)
[2020-06-18] MEDS: GABAPENTIN 300 MG CAPSULE. PO SCH (20:48)
[2020-06-18] MEDS: DULoxetine HCL 20 MG CAPSULE.DR PO SCH (20:48)
[2020-06-18 23:54] VITALS: BP 132/67
[2020-06-19] MEDS: POTASSIUM CL 20MEQ IN D5W 1,000 ML IV SCH ×3 (00:30→20:20)
[2020-06-19] MEDS: DIPHENOXYLATE/ATROPINE TABLET. PO PRN ×2 (02:00→13:14)
--- NOTE | 2020-06-19 03:59 | NUR ---
Nursing note: Pt out of precautions, C Diff neg. Up to [facility] for BM x3 this shift. Pt stated frequency of BMs decreasing, given lomotil after neg lab results.
[2020-06-19] MEDS: PIPERACILLIN/TAZOBACTAM 3.375 GM in IV NORMAL SALINE 50ML 50 ML IV SCH ×4 (05:41→23:48)
[2020-06-19 05:59] VITALS: BP 103/59
[2020-06-19 07:14] LABS: BASO % 0 % (0-3); EOS # 5.1 x10^3/uL (0.0-0.7); EOS % 31 % (0-3); HEMATOCRIT 42.7 % (36.0-47.0); HEMOGLOBIN 14.4 g/dL (12.0-15.5); LYMPH # 3.2 x10^3/uL (1.0-4.8); LYMPH % 19 % (24-48); MEAN CORPUSCULAR HEMOGLOBIN 30 pg (25-35); MEAN CORPUSCULAR HGB CONC 34 g/dL (31-37); MEAN CORPUSCULAR VOLUME 87 fL (79-100); MONO # 1.3 x10^3/uL (0.0-1.1); MONO % 8 % (0-9); NEUT # 6.9 x10^3uL (1.8-7.7); NEUT % 42 % (31-73); PLATELET COUNT 198 x10^3/uL (140-400); RED BLOOD COUNT 4.88 x10^6/uL (3.50-5.40); RED CELL DISTRIBUTION WIDTH 13.4 % (11.5-14.5); WHITE BLOOD COUNT 16.4 x10^3/uL (4.0-11.0)
[2020-06-19 07:32] LABS: ALBUMIN 3.2 g/dL (3.4-5.0); CALCIUM 8.4 mg/dL (8.5-10.1); CREATININE 0.8 mg/dL (0.6-1.0); GFR 69.4; MAGNESIUM 2.2 mg/dL (1.8-2.4); POTASSIUM 3.8 mmol/L (3.5-5.1); TOTAL BILIRUBIN 1.2 mg/dL (0.2-1.0); TOTAL PROTEIN 6.4 g/dL (6.4-8.2)
[2020-06-19] MEDS ORDERED: IPRATRPIUM/ALBUTEROL 0.5/2.5MG 3 ML NEBU. NEB SCH (08:00)
[2020-06-19] MEDS: CALCIUM CARB/VIT D3 500/200 TABLET PO SCH ×2 (08:21→16:59)
[2020-06-19] MEDS: PANTOPRAZOLE 40 MG TABLET. PO SCH (08:21)
[2020-06-19] MEDS: LACTOBACILLUS RHAMNOSUS GG 1 CAPSULE. PO SCH ×2 (08:21→20:20)
[2020-06-19] MEDS: DULoxetine HCL 20 MG CAPSULE.DR PO SCH ×2 (08:21→20:20)
[2020-06-19] MEDS: OMEGA-3 FATTY ACIDS/FISH OIL 1,000 MG CAPSULE. PO SCH (08:21)
[2020-06-19] MEDS: GABAPENTIN 300 MG CAPSULE. PO SCH ×3 (08:21→20:20)
[2020-06-19] MEDS: ASCORBIC ACID 1,000 MG TABLET PO SCH (08:22)
[2020-06-19] MEDS: CHOLECALCIFEROL (VITAMIN D3) 1,000 UNIT TABLET PO SCH (08:22)
[2020-06-19] MEDS: VITAMIN E. 400 UNIT CAPSULE. PO SCH (08:23)
[2020-06-19] MEDS: DICLOFENAC SODIUM 1% TOPICAL GEL 100GM TUBE. TP SCH ×2 (08:23→20:20)
[2020-06-19] MEDS ORDERED: NON FORMULARY ITEM (Biotin 10,000 MCG) PO SCH (09:00)
--- NOTE | 2020-06-19 10:20 | NUR ---
Pt is calm, cooperative and compliant with cares. A & O x 4. She states her abd is tender to touch and her buttocks is sore. Betsy bottle offered for betsy care which pt accepted. Pt is interactive and eye contact is good. After eating pt will quickly have a liquid bowel movement. Pt is SBA for transfers and will participate in ADL's.
[2020-06-19] MEDS: ONDANSETRON PF 4 MG/2 ML VIAL. IVP PRN ×2 (10:34)
[2020-06-19] MEDS: VITS A & D/LANOLIN TOPICAL OINTMENT 42GM TUBE. TP PRN (11:05)
[2020-06-19] MEDS: ZINC OXIDE 20% TOPICAL OINTMENT 28GM TUBE. TP PRN (11:05)
[2020-06-19 11:06] VITALS: BP 95/53
[2020-06-19 12:31] LABS: % BANDS 3 % (0-9); % EOS 30 % (0-5); % LYMPHS 15 % (24-48); % METAS 1 % (0-0); % MONOS 8 % (0-10); % SEGS 43 % (35-66); PLT ESTIMATE ADEQUATE (ADEQUATE)
--- NOTE | 2020-06-19 15:24 | DS ---
DATE OF DISCHARGE: 06/19/2020 HOSPITAL COURSE: The patient is a 80-year-old female patient who was admitted to [facility] through the Emergency Room with a complaint of abdominal pain and diarrhea. She apparently was seen in the Emergency Room on 06/13/2020 for similar symptoms. At that time, she was started on levofloxacin and actually Lomotil. The patient returned to the Emergency Room on 06/17/2020, as she continued to have watery diarrhea and weakness. She stated that she is unable to eat or drink anything because she runs through her. She denied any recent illness, denied any recent antibiotic therapy, and denied any fever. She was diagnosed with COVID on 03/12/2020. At that time, she was very fatigued. She was quarantined, and [facility] Department used to call her every day, and eventually, she was taken off the quarantine. However, on 06/09/2020, she started having feeling fatigued again and weak. On 06/12/2020, she started to have diarrhea and was seen in the Emergency Room on 06/13/2020. She stated that she has vomited first 2 days and continued to have abdominal cramping, but there was no blood in the stool. She did also feel dizzy and weak. On 06/13/2020, her white cell count was elevated at 29,600. She was clearly dehydrated as her hemoglobin and hematocrit were 17.7 and 52.5. Her chemistry showed that she had lactic acidosis with serum lactic acid of 2.8. However, at that time, she apparently was sent home on levofloxacin as well as Lomotil without much improvement in her symptoms. The patient stated that she was admitted to this hospital about 7-8 years ago with similar symptoms. At that time, she was told she has gastroenteritis. She has had a CT scan of the abdomen and pelvis on 06/13/2020, which showed that the patient has diffuse wall thickening and mucosal enhancement of several loops of small bowel in the central abdomen, perhaps representing enteritis and mildly enlarged mesenteric lymph nodes, likely reactive with sigmoid diverticulosis without diverticulitis. She was admitted, and we actually started her on IV fluid and also Zosyn 3.375 grams IV every 6 hours. We sent stool for C. diff as well as stool for culture and sensitivity. Her white cell count is still trending down; however, she continued to have severe eosinophilia, more than 30% of the total white cell count. Her chemistry showed that she has mild hyperbilirubinemia and elevated alkaline phosphatase. Her coagulation tests are normal and her stool for C. diff by PCR was negative. Her stool for Campylobacter by PCR was negative. Stool for E. coli Shiga toxin by PCR negative. Stool for Salmonella and Shigella by PCR were negative. The patient stated that she has been to [place] about 20 years ago and lived for a short period of time in [place] also years ago. She actually lives in [place] and uses city water and has not used any antibiotic for over the last 6 months or more. She has 2 cats, one of them is a stray cat that she adopted only about 4 weeks ago and her symptoms actually started before that. Given that she continued to have multiple loose bowel movements and she has severe eosinophilia, a decision was made to transfer her to [facility] to consult the Infectious Disease specialist as well as the airplane patrol pilot, as there are multiple possibilities including Strongyloides stercoralis and eosinophilic gastroenteritis and perhaps some other parasitic infection that might be causing this diarrhea and systemic eosinophilia. PHYSICAL EXAMINATION: GENERAL: When I saw her this afternoon, she was resting slightly propped up in bed, in no apparent respiratory distress. No pallor, jaundice, cyanosis or thyromegaly. No jugular venous distention. No lower limb edema. VITAL SIGNS: Her heart rate was 62, blood pressure was 95/53, temperature was 98.5, respiratory rate was 17, and oxygen saturation was 94%. HEAD, EYES, EARS, NOSE AND THROAT: Showed normocephalic, atraumatic. NECK: Supple. HEART: Normal first and second heart sounds. No gallop or murmur. CHEST: Clear to auscultation. No crepitation or rhonchi. ABDOMEN: Distended, soft, and nontender. NEUROLOGIC: She was grossly intact. Her intake over the last 24 hours was 2375, no output was recorded. LABORATORY DATA: As of this morning, her white cell count was 16,400, hemoglobin 14.4, hematocrit 42.7, MCV 87, and platelet count of 198,000 with a manual differential showed 42% polymorphs, 19% lymphocytes, and 31% eosinophils. Her chemistry this morning showed a serum sodium 141, potassium 3.8, chloride 108, bicarbonate 21, anion gap of 12, BUN 8, creatinine 0.8, estimated GFR was 69 mL per minute. Her glucose 108, calcium was 8.4, magnesium was 2.2. Total bilirubin 1.2, alkaline phosphatase was high. AST and ALT are normal. Total protein was 6.4, albumin was 3.2. Her prothrombin time, INR and aPTT were normal. Urinalysis essentially unremarkable. Her C. diff toxins by PCR were negative and Campylobacter, E. coli Shiga toxin, Salmonella, and Shigella by PCR were all negative. DISCHARGE MEDICATIONS: The patient was transferred to [facility] to continue on vitamin A&D ointment for skin protection, zinc oxide for skin protection, vitamin E 400 units once a day, fish oil 1000 mg once a day, vitamin D 5000 units daily, ascorbic acid 1000 mg once a day, Protonix 40 mg daily, gabapentin 300 mg 3 times a day, duloxetine 20 mg twice a day, diclofenac gel 1 gram applied topically twice a day, calcium with vitamin D 2 tablets twice a day, melatonin 9 mg at bedtime, diphenoxylate/atropine for Lomotil 1 tablet every 4 hours, acetaminophen 650 mg 4 times a day, D5W with 40 mEq of potassium at 125 mL per hour, lactobacillus rhamnosus 1 capsule twice a day, piperacillin and tazobactam 3.375 grams IV every 6 hours, and ondansetron 4 mg IV every 6 hours. FINAL DISCHARGE DIAGNOSES: 1. Recurrent persistent diarrhea with dehydration. 2. Marked eosinophilia. 3. Other medical problems including: A. Hypertension. B. Seasonal allergies. C. Generalized osteoarthritis and fibromyalgia. JACK PRESLEY MD DR: JOVON/barry JOB#: [id number] / [id number]
[2020-06-19 15:33] VITALS: BP 107/55
--- NOTE | 2020-06-19 16:30 | NUR ---
Call placed to PICC line personal counselor Nurse Emily for PICC line or Midline placement. Message left.
--- NOTE | 2020-06-19 17:30 | NUR ---
Emily with PICC team called and stated she will be here at a little after 0.
[2020-06-19 20:00] VITALS: BP 118/72
--- NOTE | 2020-06-19 23:42 | NUR ---
Consent signed Yes Previous PICC placement No Past Medical/Surgical history and current diagnosis reviewed Yes Patient Medical /Surgical History Related to PICC line placement None Special considerations for PICC line placement None PICC placement indication Poor peripheral intravenous access Name of PICC Nurse Emily Roche RN
--- NOTE | 2020-06-19 23:43 | NUR ---
Procedure: Following complete explanation of the PICC procedure including the indications, risks, and potential complications, informed consent was obtained. The possibility for infection was discussed along with signs, symptoms, and prevention. All the questions were answered. IV Device Protocol was used. Written and verbal patient education was provided. Hand hygiene performed. Standardized central line checklist was utilized. The patient was placed in the supine position, the right arm was prepped with chlorhexidine and patient draped with maximum sterile barrier. 1 mL 1% lidocaine was infiltrated into the skin to provide local anesthesia. A thorough assessment of upper extremity completed. Using real-time ultrasound guidance and standardized micro puncture set, the basilic vein was punctured and a peel away sheath was placed using the modified Seldinger technique. A tip location device was used to ensure adequate catheter placement. The catheter was secured using a securement device and an antimicrobial patch was applied directly on the insertion site followed by a transparent dressing. All ports withdraw blood and flush without resistance. Patient tolerated the procedure without apparent complication. A dual Lumen Power PICC placement successful and uncomplicated. Placement verified by EKG tip confirmation system with green p wave and brando observed. Tip located in the low SVC per 3CG Complications: None
[2020-06-20] MEDS: MELATONIN 3 MG TABLET PO PRN ×2 (00:09→20:44)
[2020-06-20] MEDS: POTASSIUM CL 20MEQ IN D5W 1,000 ML IV SCH ×4 (06:01→23:52)
[2020-06-20] MEDS: PIPERACILLIN/TAZOBACTAM 3.375 GM in IV NORMAL SALINE 50ML 50 ML IV SCH ×4 (06:01→23:52)
[2020-06-20 06:15] VITALS: BP 114/64
--- NOTE | 2020-06-20 06:37 | NUR ---
Pt got up to go to the bathroom several times last night. Will continue to monitor.
[2020-06-20] MEDS: DULoxetine HCL 20 MG CAPSULE.DR PO SCH ×2 (09:00→20:43)
[2020-06-20] MEDS: ASCORBIC ACID 1,000 MG TABLET PO SCH (09:00)
[2020-06-20] MEDS: DICLOFENAC SODIUM 1% TOPICAL GEL 100GM TUBE. TP SCH ×2 (09:00→20:43)
[2020-06-20] MEDS: ZINC OXIDE 20% TOPICAL OINTMENT 28GM TUBE. TP PRN (10:02)
[2020-06-20] MEDS: DIPHENOXYLATE/ATROPINE TABLET. PO PRN ×3 (10:26→20:43)
[2020-06-20] MEDS: GABAPENTIN 300 MG CAPSULE. PO SCH ×3 (10:27→20:43)
[2020-06-20] MEDS: CHOLECALCIFEROL (VITAMIN D3) 1,000 UNIT TABLET PO SCH (10:27)
[2020-06-20] MEDS: CALCIUM CARB/VIT D3 500/200 TABLET PO SCH ×2 (10:27→17:00)
[2020-06-20] MEDS: OMEGA-3 FATTY ACIDS/FISH OIL 1,000 MG CAPSULE. PO SCH (10:27)
[2020-06-20] MEDS: LACTOBACILLUS RHAMNOSUS GG 1 CAPSULE. PO SCH ×2 (10:27→20:43)
[2020-06-20] MEDS: VITAMIN E. 400 UNIT CAPSULE. PO SCH (10:27)
[2020-06-20] MEDS: PANTOPRAZOLE 40 MG TABLET. PO SCH (10:27)
[2020-06-20 11:00] VITALS: BP 108/58
[2020-06-20 15:00] VITALS: BP 135/70
[2020-06-20] MEDS ORDERED: IOHEXOL 240 MG/ML 50ML VIAL. PO ONE (17:00)
[2020-06-20] MEDS ORDERED: IOHEXOL 300 MG/ML 75 ML VIAL. IV ONE (17:00)
[2020-06-20 19:15] VITALS: BP 116/63
--- NOTE | 2020-06-20 19:22 | RAD ---
Exam: CT of abdomen and pelvis with contrast INDICATION: Abdominal distention, nausea TECHNIQUE: Sequential axial images through the abdomen and pelvis obtained following the administrati on of 75 mL of Omni 300 IV contrast. Sagittal and coronal reformatted images were reconstructed from the axial data and reviewed. Comparisons: 06/13/2020 FINDINGS: Heart size is normal. No pericardial effusion. Visualized lung bases are clear.. Liver, pancreas and adrenals are unremarkable. Gallbladder is surgically absent. Spleen is enlarged m easuring 15.5 cm in long axis. Kidneys demonstrate symmetric enhancement. No perinephric inflammation or hydronephrosis. No renal or ureteral calculi are identified. Bladder is partially distended and not well evaluated. Uterus is absent. No abnormal adnexal mass. Large and small bowel are unremarkable. Appendix is not identified. No free intra-abdominal air or fl uid. No obstruction. Abdominal aorta has a normal course and caliber. Abdominal vasculature is patent. No enlarged intra-abdominal lymph nodes are identified. No suspicious osseous lesions or acute fractures. IMPRESSION: No acute process identified within the abdomen or pelvis. Exposure: One or more of the following in the visualized dose reduction techniques were utilized for this examination: 1. Automated exposure control 2. Adjustment of the MA and/or KV according to patient size 3. Use of iterative of reconstructive technique Electronically signed by: Nicky Hutchins MD (06/20/2020 7:20 PM) [facility]
--- NOTE | 2020-06-20 19:24 | PN ---
DATE: 06/20/2020 SUBJECTIVE: The patient is still complaining of nausea, but no vomiting, abdominal pain, recurrent bouts of loose bowel movement. We did attempt to transfer her to [facility]. Unfortunately, no beds available so far for that. She has marked eosinophilia together with dilatation of her bowel and actually we sent stool for C. diff that was negative and stool for Campylobacter, salmonella, Shigella and E. coli are all negative by PCR and given her marked degenerative failure some form of parasitic infection, perhaps her Crohn's disease might explain all this and she has been treated with levofloxacin as an outpatient and has been on Zosyn and so far her symptom has not really subsided. PHYSICAL EXAMINATION: GENERAL: When I examined her this afternoon, she was resting flat, comfortably in bed, in no apparent respiratory distress. There was no pallor, jaundice or cyanosis. No lymphadenopathy, no thyromegaly. No jugular venous distention. No lower limb edema. VITAL SIGNS: Her heart rate was 65, blood pressure was 135/70, temperature was 98.4, respiratory rate was 17 and oxygen saturation was 97%. HEAD, EYES, EARS, NOSE AND THROAT: Normocephalic, atraumatic. NECK: Supple. HEART: Normal first and second heart sounds. No gallop or murmur. CHEST: Clear to auscultation. No crepitation or rhonchi. ABDOMEN: Distended with tenderness mostly in the left upper quadrant and epigastric area. There is no guarding or rigidity. No organomegaly. All hernial orifices are intact. Bowel sounds normal. NEUROLOGIC: She is grossly intact. Her intake over the last 24 hours was 1160, no output. LABORATORY DATA: Today's labs are still pending at the time of this dictation. ASSESSMENT: 1. Recurrent persistent diarrhea with dehydration. 2. Marked eosinophilia . 3. The CT scan of the abdomen and pelvis showed the patient has diffuse wall thickening and mucosal hyperenhancement of several loops of small bowel in the central abdomen, perhaps representing enteritis with multiple mildly enlarged mesenteric lymph nodes, likely reactive. 4. Other medical problems include hypertension, seasonal allergy, generalized osteoarthritis, and fibromyalgia. PLAN: My plan is to continue with IV antibiotic. Continue with IV fluid. Repeat her labs. Repeat CT scan of the abdomen and pelvis with oral and IV contrast and decide the further management. I will discuss this case with Dr. Gupta probably tomorrow as I am unable to transfer her there to be seen by both the grain sacker and perhaps Infectious Disease specialist. JACK PRESLEY MD DR: JOVON/barry JOB#: [id number] / [id number]
[2020-06-20 20:55] LABS: HEMATOCRIT 38.7 % (36.0-47.0); HEMOGLOBIN 13.1 g/dL (12.0-15.5); RED BLOOD COUNT 4.46 x10^6/uL (3.50-5.40); WHITE BLOOD COUNT 10.4 x10^3/uL (4.0-11.0)
[2020-06-20 21:22] LABS: CALCIUM 8.5 mg/dL (8.5-10.1); CREATININE 0.9 mg/dL (0.6-1.0); GFR 60.6; POTASSIUM 4.3 mmol/L (3.5-5.1)
[2020-06-20 21:51] LABS: ALBUMIN 2.9 g/dL (3.4-5.0); TOTAL BILIRUBIN 1.3 mg/dL (0.2-1.0); TOTAL PROTEIN 5.9 g/dL (6.4-8.2)
[2020-06-20 22:55] VITALS: BP 103/52
[2020-06-21] MEDS: ZINC OXIDE 20% TOPICAL OINTMENT 28GM TUBE. TP PRN (01:35)
[2020-06-21] MEDS: VITS A & D/LANOLIN TOPICAL OINTMENT 42GM TUBE. TP PRN (01:35)
[2020-06-21 05:15] VITALS: BP 119/72
[2020-06-21] MEDS: PIPERACILLIN/TAZOBACTAM 3.375 GM in IV NORMAL SALINE 50ML 50 ML IV SCH ×2 (05:35→13:36)
--- NOTE | 2020-06-21 06:15 | NUR ---
Pt awake in bed at change of shift, just returned from CT. Pt A&Ox4, very pleasant and cooperative with all assessments and care. VSS. Pt up to [facility] multiple times this shift for liquid stools and voiding. pt stated that "its more urine then stool but its still a lot!" Pt with maceration to buttocks r/t frequent stools, betsy bottle and A&D oint applied PRN along with Zinc. Pt does complain of some mild cramping in lower abdomen after eating or just before a bowel movement. No nausea or vomiting this shift. Still awaiting possible transfer to [facility] for GI consult.
[2020-06-21 06:31] LABS: HEMATOCRIT 39.1 % (36.0-47.0); HEMOGLOBIN 13.3 g/dL (12.0-15.5); RED BLOOD COUNT 4.49 x10^6/uL (3.50-5.40); WHITE BLOOD COUNT 9.6 x10^3/uL (4.0-11.0)
[2020-06-21 06:47] LABS: ALBUMIN 2.9 g/dL (3.4-5.0); CALCIUM 8.3 mg/dL (8.5-10.1); GFR 53.6; POTASSIUM 4.2 mmol/L (3.5-5.1); TOTAL BILIRUBIN 1.3 mg/dL (0.2-1.0); TOTAL PROTEIN 5.8 g/dL (6.4-8.2)
[2020-06-21] MEDS: POTASSIUM CL 20MEQ IN D5W 1,000 ML IV SCH ×2 (08:30→16:30)
[2020-06-21] MEDS: ASCORBIC ACID 1,000 MG TABLET PO SCH (09:00)
[2020-06-21] MEDS ORDERED: DIPHENOXYLATE/ATROPINE TABLET. PO PRN (09:15)
[2020-06-21] MEDS: DULoxetine HCL 20 MG CAPSULE.DR PO SCH (09:23)
[2020-06-21] MEDS: OMEGA-3 FATTY ACIDS/FISH OIL 1,000 MG CAPSULE. PO SCH (09:23)
[2020-06-21] MEDS: PANTOPRAZOLE 40 MG TABLET. PO SCH (09:24)
[2020-06-21] MEDS: LACTOBACILLUS RHAMNOSUS GG 1 CAPSULE. PO SCH (09:24)
[2020-06-21] MEDS: CALCIUM CARB/VIT D3 500/200 TABLET PO SCH (09:24)
[2020-06-21] MEDS: VITAMIN E. 400 UNIT CAPSULE. PO SCH (09:24)
[2020-06-21] MEDS: CHOLECALCIFEROL (VITAMIN D3) 1,000 UNIT TABLET PO SCH (09:24)
[2020-06-21] MEDS: GABAPENTIN 300 MG CAPSULE. PO SCH ×2 (09:25→14:00)
[2020-06-21] MEDS: DICLOFENAC SODIUM 1% TOPICAL GEL 100GM TUBE. TP SCH ×2 (09:25→13:36)
--- NOTE | 2020-06-21 13:04 | PN ---
DATE: 06/21/2020 SUBJECTIVE: The patient is resting flat in bed comfortably, in no apparent distress. We did advance her diet yesterday and she developed severe abdominal pain and decided to go back to clear liquid diet. She continued to have diarrhea, although she has some formed stool today. PHYSICAL EXAMINATION: GENERAL: When I examined her, there was no pallor, jaundice, cyanosis or thyromegaly. No jugular venous distention. No limb edema. VITAL SIGNS: Her heart rate was 85, blood pressure was 119/72, temperature was 99, respiratory rate was 20, and oxygen saturation was 94% on room air. HEAD, EYES, EARS, NOSE AND THROAT: Showed normocephalic, atraumatic. NECK: Supple. HEART: Showed normal first and second heart sounds. No gallop or murmur. CHEST: Clear to auscultation. No crepitation or rhonchi. ABDOMEN: Distended, soft, nontender. NEUROLOGIC: She is awake, alert, responding appropriately. All cranial nerves intact. She moves extremities without difficulty. Her intake was 1250, no output was recorded. LABORATORY DATA: As of this morning, her white cell count was 9600, hemoglobin was 13.3, hematocrit 39, MCV 87, and a platelet count of 112,000. Serum sodium was 139, potassium 4.2, chloride 104, bicarbonate 25, anion gap of 10, BUN 7, creatinine 1, estimated GFR was 54 mL per minute. Her glucose 97, calcium was 8.3. Total bilirubin, AST, ALT were normal. Alkaline phosphatase slightly elevated. Total protein 5.8, albumin was 2.9. ASSESSMENT: 1. Recurrent episodes of diarrhea with dehydration. 2. Markedly eosinophilia. 3. CT scan of the abdomen and pelvis showed the patient has diffuse wall thickening and mucosal hyper enhancement of several loops of small bowel in the central abdomen, perhaps representing enteritis with multiple mildly enlarged mesenteric lymph nodes, likely reactive. 4. The patient has multiple other medical problems including: A. Hypertension. B. Fibromyalgia. C. Generalized osteoarthritis. D. Seasonal allergy. PLAN: To continue with IV antibiotic. Continue with clear liquid diet. Had a repeat CT scan of the abdomen and pelvis, showed that the heart size is normal with no pericardial effusion. Visualized lung bases are clear. Liver, pancreas and adrenals are unremarkable. Gallbladder surgically absent. Spleen is enlarged measuring 15.5 cm long axis. Kidneys demonstrate symmetric enhancement. No perinephric inflammation or hydronephrosis. No renal or ureteral calculi identified. Bladder is partially distended, not well evaluated. Uterus is absent. No abdominal adnexal masses. Large and small bowel are unremarkable. Appendix is not identified. No free intra-abdominal air or fluid, no obstruction. Abdominal aorta has a normal course and caliber. Abdominal vasculature is patent. No enlarged intra-abdominal lymph nodes are identified. No suspicious osseous lesions or acute fractures. My plan is to repeat her CBC with differential and decide the further management accordingly. We sent also stool for ova, cysts, and parasites. JACK PRESLEY MD DR: JOVON/barry JOB#: [id number] / [id number]
[2020-06-21 13:26] VITALS: BP 102/60
[2020-06-21 13:38] LABS: BASO # 0.1 x10^3/uL (0.0-0.2); BASO % 1 % (0-3); EOS # 3.9 x10^3/uL (0.0-0.7); EOS % 34 % (0-3); HEMATOCRIT 41.6 % (36.0-47.0); LYMPH # 1.2 x10^3/uL (1.0-4.8); LYMPH % 10 % (24-48); MEAN CORPUSCULAR HEMOGLOBIN 29 pg (25-35); MEAN CORPUSCULAR HGB CONC 34 g/dL (31-37); MEAN CORPUSCULAR VOLUME 88 fL (79-100); MONO # 0.7 x10^3/uL (0.0-1.1); MONO % 6 % (0-9); NEUT # 5.7 x10^3uL (1.8-7.7); NEUT % 50 % (31-73); PLATELET COUNT 134 x10^3/uL (140-400); RED BLOOD COUNT 4.76 x10^6/uL (3.50-5.40); RED CELL DISTRIBUTION WIDTH 13.4 % (11.5-14.5); WHITE BLOOD COUNT 11.6 x10^3/uL (4.0-11.0)
[2020-06-21 14:18] LABS: % BANDS 2 % (0-9); % EOS 30 % (0-5); % LYMPHS 11 % (24-48); % MONOS 5 % (0-10); % SEGS 52 % (35-66)
[2020-06-21 14:19] LABS: PLT ESTIMATE DECREASED (ADEQUATE); POLYCHROMASIA SLIGHT
[2020-06-21 14:20] LABS: TOXIC GRANULATION SLIGHT; TOXIC VACUOLATION SLIGHT
[2020-06-21 15:51] VITALS: BP 106/68
--- NOTE | 2020-06-21 17:00 | NUR ---
Patient was discharged to [facility] Room 440. Report was called to [facility] RN at ext [phone]. Patient left the unit with all her belongings via EMS. Patient was alert and oriented X 4 with vitals signs WNL. Patient information packet was sent with EMS.
== END 2020-06-21 17:00 | disposition short-term general hospital (02) | DRG 392 ==
LOC: ER 14:51 → ICU 18:45
PROVIDERS: ADMIT Internal Medicine; ATTEND Internal Medicine
DX: K52.9 Noninfective gastroenteritis and colitis, unspecified (principal); K50.90 Crohn's disease, unspecified, without complications; R17 Unspecified jaundice; E87.2 Acidosis; E86.0 Dehydration; B89 Unspecified parasitic disease; D72.10 Eosinophilia, unspecified; S09.90XA Unspecified injury of head, initial encounter; E83.42 Hypomagnesemia; E87.6 Hypokalemia; I10 Essential (primary) hypertension; J30.2 Other seasonal allergic rhinitis; M15.9 Polyosteoarthritis, unspecified; M79.7 Fibromyalgia; X58.XXXA Exposure to other specified factors, initial encounter; Z82.0 Family history of epilepsy and other diseases of the nervous system; K21.9 Gastro-esophageal reflux disease without esophagitis; Z82.49 Family history of ischemic heart disease and other diseases of the circulatory system; Z90.49 Acquired absence of other specified parts of digestive tract; Z90.710 Acquired absence of both cervix and uterus; Z98.41 Cataract extraction status, right eye; Z98.42 Cataract extraction status, left eye; Z88.8 Allergy status to other drugs, medicaments and biological substances; Z86.16 Personal history of COVID-19
CPT/HCPCS: 36415; 74177; 80053; 81001; 83735; 85007; 85025; 85027; 85610; 85730; 87493; 87505; 90471; 90686; 93005; 96361; 96365; 96372; J0500; J2405; J2543; J3475; J7042; Q9966; Q9967; 99285-25; J7030

== ENCOUNTER → 2020-10-19 | Outpatient (CLI) | payer MEDICARE ==
[~2020-10-19] MED LIST changes: +ACET325T9 PO; +ASCO500C PO; +BIOT5000 PO; +CALC-497 PO; +CHOL500045 PO; +DICL100G28 TP; +DULO20CA50 PO; +ESOM40CA PO; +GABA-586 PO; +LISI20TA18 PO; +MELA10TA PO; +NAPR220T70 PO; +OMEG100021 PO; +VITA400T6 PO
--- NOTE | 2020-10-20 13:08 | RAD ---
INDICATION: 80 years of age asymptomatic female patient presents for screening mammography. TECHNIQUE: Full field craniocaudal and mediolateral oblique images of both breasts were obtained usi ng digital technique with tomosynthesis and also analyzed with computer-aided detection software. COMPARISON: None BREAST COMPOSITION: Category C: The breast tissue is heterogeneously dense, which could obscure detec tion of small masses. FINDINGS: The parenchymal pattern appears stable. Benign calcifications are present. No suspicious masses, microcalcifications or architectural distortion is present to suggest malignanc y in either breast. The visualized axillae are unremarkable. IMPRESSION: No mammographic evidence of malignancy. RECOMMENDATION: Annual screening mammography is recommended, unless clinically indicated sooner based on symptoms or change in physical exam. BIRADS 2: BENIGN This study was interpreted with the benefit of Computerized Aided Detection (CAD). ?Your patient's mammogram demonstrates that she has dense breast tissue (breast density category C or D), which could hide abnormalities, and if she has other risk factors for breast cancer that have be en identified, she might benefit from supplemental screening tests that may be suggested by you as he r ordering physician. Dense breast tissue, in and of itself, is a relatively common condition. Theref ore, this information is not provided to cause undue concern, but rather to raise your awareness and to promote discussion with your patient regarding the presence of other risk factors, in addition to dense breast tissue. Your patient's mammography results will be sent to her. Patient information is entered into the reminder system with a target due date for the next screening mammogram. Mammography is the most sensitive method for finding small breast cancers, but it does not detect the m all and is not a substitute for careful clinical examination. A negative mammogram does not negate a clinically suspicious finding and should not result in delay in biopsying a clinically suspicious a bnormality. "Our facility is accredited by the [employer] Mammography Program." Electronically signed by: Edi Zeng MD (10/20/2020 1:05 PM) [place] [id number]
--- NOTE | 2020-10-20 14:08 | RAD ---
EXAMINATION: XR CHEST 2V CLINICAL HISTORY: Cough EXAM DATE/TIME: 10/19/2020 3:10 PM COMPARISON: 06/13/2020 FINDINGS: Lines, Tubes, and Devices: None. Cardiomediastinal Silhouette: Normal heart size. Lungs and Pleura: Minimal patchy opacities in the right lung base, likely atelectasis. No evidence of focal airspace consolidation or pleural effusion. Pulmonary vasculature unremarkable. Bones and Soft Tissues: Degenerative changes of the thoracic spine. Cholecystectomy clips. IMPRESSION: Minimal patchy airspace disease in the right lung base, likely subsegmental atelectasis. Electronically signed by: Giovanni Small DO (10/20/2020 2:06 PM) [facility]
--- NOTE | 2020-10-20 17:04 | RAD ---
Bone Densitometry History: Reason: POST MENOPAUSAL. FEMALE CLIMACTERIC STATES. / Spl. Instructions: / History: Findings: Bone Densitometry was performed with dual photon absorption of the lumbar spine and right proximal fe mur. Lumbar Spine: Bone density is 1.036 g/cm2 for L1-L4. T-score is -1.2. Z-score is -0.5. Right femoral neck: Bone density is 0.747 g/cm2. T-score is -1.6. Z-score is -0.2. IMPRESSION: There is osteopenia of the lumbar spine and the right femoral neck. World Health Organization definition of osteoporosis and osteopenia for women: normal equal s T score at or above -1.0 standard deviations; osteopenia equals T score between -1.0 and -2.5 stand rafael deviations; osteoporosis equals T score at or below -2.5 standard deviations. Electronically signed by: Robert Emanuel MD (10/20/2020 5:01 PM) [id number]
== END ==
LOC: MAMMO 14:24
PROVIDERS: ATTEND Specialist
DX: Z12.31 Encounter for screening mammogram for malignant neoplasm of breast (principal); R05 Cough; N95.0 Postmenopausal bleeding; M85.88 Other specified disorders of bone density and structure, other site; M47.814 Spondylosis without myelopathy or radiculopathy, thoracic region
CPT/HCPCS: 71046; 77067; 77080